=== PATIENT | female | born 1990 | race Two or more races ===

== ENCOUNTER 2022-02-06 17:30 | Emergency (ER) | payer MEDICAID ==
[~2022-02-06] VITALS: Ht 157.5 cm; Wt 89.1 kg
[2022-02-06 19:08] VITALS: BP 117/69
[2022-02-06] MEDS ORDERED: HYDROCODONE/ACETAMINOPHEN 5-325 MG TABLET PO ONE (19:30)
[2022-02-06] MEDS ORDERED: HYDR-4723 PO (19:41)
== END 2022-02-06 20:01 | disposition home or self-care (01) ==
LOC: EMS 17:38
DX: K08.89 Other specified disorders of teeth and supporting structures (principal); J45.909 Unspecified asthma, uncomplicated
CPT/HCPCS: 99283

== ENCOUNTER 2022-02-16 20:12 | Emergency (ER) | payer MEDICAID ==
[~2022-02-16] VITALS: Ht 165.1 cm; Wt 81.8 kg
[~2022-02-16 20:12] MED LIST: HYDR-4723 PO
[2022-02-16 20:35] VITALS: BP 124/75
[2022-02-16] MEDS ORDERED: HYDR-4723 PO (21:06)
[2022-02-16] MEDS ORDERED: HYDROCODONE/ACETAMINOPHEN 5-325 MG TABLET PO ONE (21:15)
== END 2022-02-16 21:28 | disposition home or self-care (01) ==
LOC: EMS 20:12
DX: K02.9 Dental caries, unspecified (principal); K04.7 Periapical abscess without sinus; J45.909 Unspecified asthma, uncomplicated
CPT/HCPCS: 99283

== ENCOUNTER 2022-04-04 12:32 | Emergency (ER) | payer MEDICAID ==
[~2022-04-04] VITALS: Ht 157.5 cm; Wt 86.0 kg
[2022-04-04] MEDS ORDERED: HYDROCODONE/ACETAMINOPHEN 5-325 MG TABLET PO ONE (15:15)
[2022-04-04 15:20] VITALS: BP 118/72
== END 2022-04-04 15:47 | disposition home or self-care (01) ==
LOC: EMS 12:32
DX: K02.9 Dental caries, unspecified (principal); J45.909 Unspecified asthma, uncomplicated; F17.210 Nicotine dependence, cigarettes, uncomplicated; Z98.890 Other specified postprocedural states
CPT/HCPCS: 99283

== ENCOUNTER 2023-07-12 23:09 | Emergency (ER) | payer MEDICAID ==
[~2023-07-12] VITALS: Ht 154.9 cm; Wt 86.0 kg
[2023-07-12 23:15] VITALS: BP 113/78; PULSE 99; RESP 16; TEMP 97.8
[2023-07-12] MEDS ORDERED: BUPRENORPHINE HCL/NALOXONE HCL 8-2 MG SUBLINGUAL TABLET SL ONE ×2 (23:45)
== END 2023-07-12 23:52 | disposition home or self-care (01) ==
LOC: EMS 23:11
DX: F11.20 Opioid dependence, uncomplicated (principal); J45.909 Unspecified asthma, uncomplicated; F17.210 Nicotine dependence, cigarettes, uncomplicated; Z98.890 Other specified postprocedural states; Z76.0 Encounter for issue of repeat prescription
CPT/HCPCS: 99283

== ENCOUNTER 2023-07-14 14:09 | Emergency (ER) | payer MEDICAID ==
[~2023-07-14] VITALS: Ht 162.6 cm; Wt 85.9 kg
[2023-07-14 14:19] VITALS: TEMP 97.9
[2023-07-14 14:38] VITALS: BP 124/77; PULSE 90; RESP 18
== END 2023-07-14 14:55 | disposition left against medical advice (07) ==
LOC: EMS 14:18
DX: Z76.0 Encounter for issue of repeat prescription (principal); Z53.21 Procedure and treatment not carried out due to patient leaving prior to being seen by health care provider
CPT/HCPCS: 99281; Z7502